=== PATIENT | male | born 1945 | race Caucasian/White ===

== ENCOUNTER 2017-07-02 15:40 | Outpatient (CLI) | payer MEDICARE | END 2017-07-02 15:41 | disposition home or self-care (01) | LOC: BICRAD 15:40 | PROVIDERS: ATTEND Internal Medicine Medical Oncology | DX: C10.9 Malignant neoplasm of oropharynx, unspecified (principal); R11.2 Nausea with vomiting, unspecified; R05 Cough | CPT/HCPCS: 71046 ==

== ENCOUNTER 2017-08-09 12:37 | Day surgery (SDC) | payer MEDICARE ==
[2017-08-08 08:33] VITALS: BMI 24.3
[2017-08-09] MEDS ORDERED: Propofol 200 MG/20 ML VIAL ONE (16:04)
--- NOTE | 2017-08-09 16:29 | OP ---
PREOPERATIVE DIAGNOSES: 1. Dysphagia. 2. Oropharyngeal dysphagia with aspiration. PROCEDURE IN DETAIL: After informed consent was obtained, the patient was placed in the left lateral decubitus position. Anesthesia was administered per the Anesthesia Department. Forward-viewing end oscope was inserted into the esophagus under direct visualization with ease and passed to the second portion of the duodenum with ease. The second portion of the duodenum and duodenal bulb were normal. The pylorus, antrum, body, fundus, and cardia were normal. Retroflexion of the stomach was normal. There was a small hiatal hernia and irregular squamocolumnar junction. The irregular squamocolumna r junction was biopsied to rule out Cabrera's. The proximal esophagus at approximately 20 cm was patrick eared scarred. There was no malignant tissue noted. This was passed easily with the small Predictry c gastroscope; however, there was some scarring there. A 15-18 balloon was used and inflated in vari ous positions at 16.5 and then again at 18 mm. No mucosal changes were noted; however, when passage of the endoscope was performed, it seemed to be easier to pass the diagnostic scope. The oropharynx was deformed secondary to previous radiation changes. No malignancy or other masses were noted. ASSESSMENT: 1. 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 2. Irregular squamocolumnar junction - status post biopsy. 3. Small hiatal hernia. 4. Otherwise, normal esophagogastroduodenoscopy. RECOMMENDATIONS: 1. Repeat modified barium swallow. 2. Follow up in office in 3-4 weeks.
== END 2017-08-09 16:20 | disposition home or self-care (01) ==
LOC: SDC 12:37
PROVIDERS: ATTEND Internal Medicine Gastroenterology
PROC: 0DB78ZX Excision of Stomach, Pylorus, Via Natural or Artificial Opening Endoscopic, Diagnostic (ICD-10-PCS; principal; 2017-08-09)
DX: K20.9 Esophagitis, unspecified (principal); K44.9 Diaphragmatic hernia without obstruction or gangrene; K22.2 Esophageal obstruction; Z90.89 Acquired absence of other organs; Z98.890 Other specified postprocedural states; Z85.819 Personal history of malignant neoplasm of unspecified site of lip, oral cavity, and pharynx
CPT/HCPCS: 88305; 88312; 88313; J2704

== ENCOUNTER 2019-09-08 05:42 | Day surgery (SDC) | payer MEDICARE ==
[2019-09-07 12:41] VITALS: BMI 25.1
--- NOTE | 2019-09-08 11:17 | OP ---
DATE OF PROCEDURE: 09/08/2019 PROCEDURE PERFORMED: Colonoscopy with snare polypectomy. PREOPERATIVE DIAGNOSIS: History of colon polyps. DESCRIPTION OF PROCEDURE: Informed consent was obtained from the patient. He was sedated with total intravenous anesthesia. The rectal exam was performed and was normal. The colonoscope was advanced to the cecum, where the ileocecal valve and appendiceal orifice were clearly identified. The preparation quality was good. I removed a 3 mm polyp from the ascending colon by cold snare polypectomy. There was mild diverticulosis in the left colon. The remainder of the colonic mucosa was normal. Retroflexed views in the rectum revealed moderate internal hemorrhoids. IMPRESSION: 1. A 3 mm polyp was removed from the ascending colon. 2. Mild left-sided diverticulosis. 3. Moderate internal hemorrhoids. RECOMMENDATIONS: 1. Await histopathology. 2. He should not require future colonoscopy for age of a screening alone. Job ID: [id number]
== END 2019-09-08 09:12 | disposition home or self-care (01) ==
LOC: SDC 05:42
PROVIDERS: ATTEND Internal Medicine Gastroenterology
PROC: 0DBK8ZX Excision of Ascending Colon, Via Natural or Artificial Opening Endoscopic, Diagnostic (ICD-10-PCS; principal; 2019-09-08)
DX: Z12.11 Encounter for screening for malignant neoplasm of colon (principal); D12.2 Benign neoplasm of ascending colon; K57.30 Diverticulosis of large intestine without perforation or abscess without bleeding; K64.8 Other hemorrhoids; E78.00 Pure hypercholesterolemia, unspecified; E78.5 Hyperlipidemia, unspecified; I10 Essential (primary) hypertension; E07.9 Disorder of thyroid, unspecified; Z86.010 Personal history of colon polyps; Z79.811 Long term (current) use of aromatase inhibitors; Z79.899 Other long term (current) drug therapy; Z91.013 Allergy to seafood; Z91.030 Bee allergy status; Z91.041 Radiographic dye allergy status
CPT/HCPCS: 88305

== ENCOUNTER 2021-03-03 10:36 | Outpatient (CLI) | payer MEDICARE ==
[2021-03-03 15:30] LABS: Bilirubin Neg (Negative); Blood, Urine Negative (Negative); Clarity Clear (Clear); Glucose, Urine (Dipstick) Normal (Negative); Ketone, Urine Negative (Negative); Leukocyte Negative (Negative); Nitrite Negative (Negative); Protein, Urine (Dipstick) Negative (Neg-Trace); Specific Gravity, Urine 1.025 (1.002-1.036); Urobilinogen Normal mg/dL (Less than 2)
[2021-03-03 15:39] LABS: Bacteria/HPF None Seen HPF (None Seen); RBC/HPF None Seen HPF (0-3); Squamous Epithelial None Seen HPF (0-3); WBC/HPF None Seen HPF (0-3)
[2021-03-05 00:14] LABS: SARS-CoV-2 PCR by NAA Not Detected (NotDetected)
== END 2021-03-03 10:37 | disposition home or self-care (01) ==
LOC: LABBT 10:36
PROVIDERS: ATTEND Urology
DX: Z01.818 Encounter for other preprocedural examination (principal); N40.1 Benign prostatic hyperplasia with lower urinary tract symptoms; R39.12 Poor urinary stream; Z20.822 Contact with and (suspected) exposure to COVID-19
CPT/HCPCS: 81001; 87086; 93005; U0003; U0005; 93010

== ENCOUNTER 2021-03-07 07:10 | Day surgery (SDC) | payer MEDICARE ==
[2021-03-06 10:52] VITALS: BMI 23.6
[2021-03-07] MEDS ORDERED: Fentanyl 100 MCG/2 ML VIAL ONE (08:49)
[2021-03-07] MEDS ORDERED: Levofloxacin 500 mg/D5W 100 ml Premix Bag ONE (08:49)
[2021-03-07] MEDS ORDERED: PROPOFOL 200 MG/20 ML VIAL ONE (09:02)
[2021-03-07] MEDS ORDERED: Phenazopyridine HCl 100 MG TAB ONE (09:58)
[2021-03-07] MEDS ORDERED: Oxybutynin 5 MG TAB ONE (09:58)
[2021-03-07] MEDS ORDERED: Ketorolac Tromethamine 30 MG/ML VIAL ONE (09:58)
== END 2021-03-07 11:35 | disposition home or self-care (01) ==
LOC: SDC 07:10
PROVIDERS: ATTEND Urology
PROC: 0T7D8DZ Dilation of Urethra with Intraluminal Device, Via Natural or Artificial Opening Endoscopic (ICD-10-PCS; principal; 2021-03-07)
DX: N40.1 Benign prostatic hyperplasia with lower urinary tract symptoms (principal); R39.12 Poor urinary stream; R35.0 Frequency of micturition; R35.1 Nocturia; R39.15 Urgency of urination; R39.16 Straining to void; E78.5 Hyperlipidemia, unspecified; I10 Essential (primary) hypertension; E78.00 Pure hypercholesterolemia, unspecified; Z86.12 Personal history of poliomyelitis; Z79.811 Long term (current) use of aromatase inhibitors; Z79.899 Other long term (current) drug therapy; Z91.013 Allergy to seafood; Z91.030 Bee allergy status; Z91.041 Radiographic dye allergy status
CPT/HCPCS: J1885; J1956; J2704; J3010; L8699